=== PATIENT | male | born 1995 | race Caucasian/White ===

== ENCOUNTER 2021-06-09 19:53 | Emergency (ER) | payer OTHER ==
[2021-06-09 20:53] VITALS: BP 128/72; PULSE 67; TEMP 98.2; BMI 22.6
[2021-06-09 23:21] LABS: BASO % 0.8 % (0-2.0); EOS % 1.5 % (0-4.5); HEMATOCRIT 45.8 % (35.4-49); HEMOGLOBIN 16.2 GM/dL (11.7-16.9); LYMPH % 40.5 % (8-40); MCH 29.7 pg (25.7-33.7); MCHC 35.4 g/dl (32.0-35.9); MEAN CELL VOLUME 83.9 fl (80-96); MONO % 7.6 % (3.8-10.2); NEUT % 49.6 % (42.8-82.8); PLATELET COUNT 207 10^3/uL (134-434); RBC 5.46 M/mm3 (4.00-5.60); RDW 14.1 % (11.9-15.9); WHITE BLOOD COUNT 8.3 K/mm3 (4.0-10.0)
[2021-06-09 23:34] LABS: INR 0.94 (0.83-1.09); PROTHROMBIN TIME (PATIENT) 11.5 SEC (9.7-13.0)
[2021-06-09 23:37] LABS: ACTIVATED PTT 31.2 SECONDS (25.2-36.5)
[2021-06-09 23:43] LABS: CALCIUM 9.1 mg/dL (8.5-10.1)
[2021-06-09 23:44] LABS: ALBUMIN 4.4 g/dl (3.4-5.0); BLOOD UREA NITROGEN 15.1 mg/dL (7-18)
[2021-06-09 23:49] LABS: BILIRUBIN,TOTAL 0.6 mg/dL (0.2-1); TOT PROT 7.7 g/dl (6.4-8.2)
[2021-06-10] MEDS ORDERED: APIXABAN 5 MG TABLET PO ONE (00:15)
[2021-06-10] MEDS ORDERED: APIXABAN 5 MG TABLET ONE (00:37)
== END 2021-06-10 00:43 | disposition home or self-care (01) ==
LOC: JER 19:53
DX: I82.412 Acute embolism and thrombosis of left femoral vein (principal)
CPT/HCPCS: 36415; 80053; 85025; 85610; 85730; 93971-TC; 99284-25